=== PATIENT | male | born 1970 | race Caucasian/White ===

== ENCOUNTER 2024-09-23 15:15 | Emergency (ER) | payer MEDICAID, SELFPAY ==
[2024-09-23 15:18] VITALS: BP 132/72; PULSE 86; RESP 18; TEMP 36.4; O2SAT 100; BMI 24.8
--- NOTE | 2024-09-23 15:54 | RAD_ITS ---
EXAM: XR LEFT FOREARM, 2 VIEWS CLINICAL INDICATION: swelling TECHNIQUE: Frontal and lateral views of the left forearm. COMPARISON: No relevant prior studies available. FINDINGS: BONES/JOINTS: No significant abnormality. No acute fracture. No dislocation. SOFT TISSUES: Soft tissue swelling. RAD/Forearm 2 Views IMPRESSION: Soft tissue swelling. No foreign body or acute osseous abnormality is identified. Electronically Signed: Robert Wiseman DO at 16:30 EST ,
[2024-09-23] MEDS: Ketorolac 15 MG/ML Vial IV (16:07)
--- NOTE | 2024-09-23 16:07 | EDS_ITS ---
HPI <ARLENE Pete - Last Filed: 09/23/24 17:21> History of Present Illness Chief Complaint: Bite Narrative Narrative: Patient is a 53-year-old male with history of GERD, tobacco use, COPD presents the emerged apartment worsening pain, swelling to the left forearm. Patient states he thinks he got bit by something, he has 2 areas that are draining to his forearm. Patient states that his left forearm is now red and inflamed, painful and is here for evaluation. Pay states he does have subjective fever and chills at home. He denies any history of diabetes. Here for evaluation. [facility] <ARLENE Pete - Last Filed: 09/23/24 17:21> [facility] Medical History (Updated 09/23/24 @ 17:19 by ARLENE Pete) Arm swelling Home Medications ?Medication ?Instructions ?Recorded ?Last Taken ?Type cephalexin 500 mg capsule 500 mg PO Q6 #40 CAPSULES 09/23/24 Unknown Rx naproxen 500 mg tablet (Naprosyn) 500 mg PO BID PRN pain #20 tabs 09/23/24 Unknown Rx sulfamethoxazole 800 1 tab PO BID #20 tabs 09/23/24 Unknown Rx mg-trimethoprim 160 mg tablet (Bactrim DS) Allergy/AdvReac Type Severity Reaction Status Date / Time morphine Allergy Anaphylaxis Verified 09/23/24 15:18 povidone-iodine AdvReac Intermediate Hives Verified 09/23/24 15:21 Social History Smoking Status: Unknown if ever smoked ROS <ARLENE Pete - Last Filed: 09/23/24 17:21> ROS ED ROS Narrative Constitutional: Negative for fever, chills, weight loss, weakness Eyes: Negative for vision loss, vision change, double vision ENT: Negative for any sore throat, ear pain, congestion Cardiovascular: Negative for any chest pain, tightness, palpitations Respiratory: Negative for any cough, sputum production, hemoptysis, dyspnea, dyspnea on exertion, orthopnea Gastrointestinal: Negative for any abdominal pain, nausea, vomiting, diarrhea, constipation, blood in stool, blood in vomit : Negative for any urinary frequency, dysuria, retention, blood in urine Muscle skeletal: Negative for any neck pain, back pain. Positive for left forearm pain redness and swelling Neurological: Negative for any headache, syncope, dizziness Skin: Negative for any rashes, itching, abrasions, lacerations Psychiatric: Negative for any depression, anxiety, stress, suicidal ideation, homicidal ideation Hematologic: Negative for any excessive bruising, easy bleeding EXAM <ARLENE Pete - Last Filed: 09/23/24 17:21> Physical Exam Narrative Exam Narrative: Vital signs reviewed. HEET: Head normocephalic atraumatic, TMs clear bilaterally. Posterior pharynx is clear, moist mucous membranes. Nares clear bilaterally. Neck: Supple with no lymphadenopathy or tenderness. No signs of meningismus. Cardiac: Regular rate and rhythm no murmurs gallops or rubs, equal peripheral pulses bilaterally. Respiratory: Lungs clear to auscultation bilaterally. No chest tenderness. Abdomen: Soft, nontender, nondistended. No abdominal bruit or pulsatile masses. No hepatosplenomegaly Extremities: Patient is obvious swelling to the lateral aspect of the forearm. Patient does have some soft compartments, patient does have pain on palpation, there is erythema, there is induration. There is 1 open wound. No obvious drainage. +2 radial pulse. Neuro: Cranial nerves II through XII intact, no focal neurological deficits. Skin: Clean dry and intact with no rash, purpura, petechiae, vesicles or pustules. Backs/flank: No CVA tenderness, no midline spinal tenderness, no deformity. Psych: Normal mood and affect. No SI, HI or acute psychosis. Const Vital Signs: 09/23/24 15:18 09/23/24 16:19 09/23/24 17:00 Temperature 97.6 F L 98 F 98 F Temperature Source Oral Oral Oral Pulse Rate 86 77 76 Respiratory Rate 18 16 16 Blood Pressure 132/72 H 0/0 L 148/62 H Blood Pressure Mean 92 90 Pulse Ox 100 98 98 Oxygen Delivery Method Room Air Positive well nourished and well developed General Appearance ED: well developed <Dr. Griffin Uribe DO - Last Filed: 09/23/24 17:26> Physical Exam Const Vital Signs: 09/23/24 15:18 09/23/24 16:19 09/23/24 17:00 Temperature 97.6 F L 98 F 98 F Temperature Source Oral Oral Oral Pulse Rate 86 77 76 Respiratory Rate 18 16 16 Blood Pressure 132/72 H 0/0 L 148/62 H Blood Pressure Mean 92 90 Pulse Ox 100 98 98 Oxygen Delivery Method Room Air [facility] <Gregg MariaARLENE - Last Filed: 09/23/24 17:21> [facility] Lab Data Labs: Laboratory Results - last 24 hr 09/23/24 16:10 WBC 10.2 RBC 5.03 Hgb 14.3 Hct 42.6 MCV 84.7 MCH 28.4 MCHC 33.6 RDW Std Deviation 38.4 RDW Coeff of Lucila 12.5 Plt Count 404 MPV 9.0 Immature Gran % (Auto) 0.300 Neut % (Auto) 68.3 Lymph % (Auto) 17.6 L Greer % (Auto) 11.7 H Eos % (Auto) 1.8 Baso % (Auto) 0.3 Absolute Neuts (auto) 7.0 Absolute Lymphs (auto) 1.80 Nucleated RBC % 0 Sodium 137 Potassium 3.7 Chloride 104 Carbon Dioxide 28.0 Anion Gap 5 BUN 19 H Creatinine 0.80 Estim Creat Clear Calc 105.56 Est GFR (MDRD) Af Amer 130 Est GFR (MDRD) Non-Af 108 BUN/Creatinine Ratio 23.9 H Glucose 100 Lactic Acid 1.0 Calcium 9.0 Total Bilirubin 0.30 AST 13 L ALT 24 Alkaline Phosphatase 95 Total Protein 7.0 Albumin 3.4 Globulin 3.6 Albumin/Globulin Ratio 0.9 Radiography Diagnostic Testing: Clinical Impression(s) from Imaging Studies Forearm X-Ray 09/23/24 15:54 IMPRESSION: Soft tissue swelling. No foreign body or acute osseous abnormality is identified. Electronically Signed: Robert Wiseman DO at 16:30 EST , Treatment and Re-Evaluation :: Differential diagnosis includes however is not limited to: Compartment syndrome, cellulitis, abscess, osteomyelitis, foreign body Patient appears generally well, vital signs are stable, patient is nontoxic- appearing. Presenting to the emerged department with complaints of swelling, pain to the left forearm. Patient dates has been ongoing for a couple weeks. Patient's left forearm is erythematous, indurated. Patient received x-rays, basic laboratory values. Patient received IV Toradol for pain. All radiologic examinations were read, reviewed by the emergency department attending. From these reads, a plan of care will be put in place. Patient reevaluation was improved. Patient's laboratory values showed normal CBC, patient's chemistries were unremarkable. Patient's left forearm showed soft tissue swelling however no foreign body or acute osseous abnormality. At this time, I have low suspicion for any compartment syndrome, sepsis, deep tissue infection. Patient will be placed on Keflex as well as Bactrim for 10 days. Patient will follow-up closely with his PCP in 3 days if he becomes wo rse, fever chills, nausea or vomiting he will return here to the emergency department. He is happy with the plan of care, all questions answered, stable for discharge <Dr. Griffin Uribe, DO - Last Filed: 09/23/24 17:26> [facility] Narrative Medical decision making narrative: I have personally performed a face to face assessment of the patient and have reviewed the ARNOLD Note. I performed a substantive portion of the visit including all aspects of the following. My crowe findings include: History: Patient presents with pain and swelling to his left forearm that has been getting worse over the past 2 weeks. Patient states it has been waxing and waning. Patient states that at times, his forearm IV draining some purulent drainage. Patient admits to some numbness and tingling in his left hand. The patient describes the pain as aching and burning. Patient denies any fevers or chills. Patient states warm heat and has been helping with it. Exam: Vital signs are stable. Patient is afebrile. Patient is in no acute d istress. Musculoskeletal exam reveals tenderness over the left forearm. Forearm compartments are soft. There is induration of the skin. Range of motion of the left forearm was limited in all motions of the left forearm secondary to pain. Radial pulses are equal bilaterally. Strength is 5/5 in the radial, median, and ulnar areas. Sensation was decreased to light touch in the radial, median, and ulnar areas. There is mild tenderness over the left upper arm. There is no bony crepitance or step-off. There is no deformity noted. Medical Decision Making: Differential diagnosis includes cellulitis, abscess, osteomyelitis, electrolyte abnormality, and sepsis. X-rays of the left forearm will be obtained to assess for osteomyelitis. CBC will be obtained to assess for leukocytosis and anemia. Comprehensive metabolic profile will be obtained to assess for hepatic function, renal function, and electrolyte abnormality. Serum lactate will be obtained to assess for sepsis. Patient is given a dose of Toradol here. CBC was reviewed and was within normal limits. Comprehensive metabolic profile was reviewed and was within normal limits. X-rays of the left forearm were obtained. There are 2 views. On my independent interpretation, there is no acute fracture. There is no evidence of osteomyelitis. There is some soft tissue swelling. Radiologist also in terpreted the x-rays and agrees. Patient was advised of his findings. Patient does not have any symptoms of compartment syndrome. Patient was instructed to follow-up with his primary care physician in 3 to 5 days. Patient is given prescription for Keflex and Bactrim. Patient was instructed to take Tylenol or ibuprofen as needed for pain. Patient understood and was agreeable with the plan. All questions were answered. Lab Data Labs: Laboratory Results - last 24 hr 09/23/24 16:10 WBC 10.2 RBC 5.03 Hgb 14.3 Hct 42.6 MCV 84.7 MCH 28.4 MCHC 33.6 RDW Std Deviation 38.4 RDW Coeff of Lucila 12.5 Plt Count 404 MPV 9.0 Immature Gran % (Auto) 0.300 Neut % (Auto) 68.3 Lymph % (Auto) 17.6 L Greer % (Auto) 11.7 H Eos % (Auto) 1.8 Baso % (Auto) 0.3 Absolute Neuts (auto) 7.0 Absolute Lymphs (auto) 1.80 Nucleated RBC % 0 Sodium 137 Potassium 3.7 Chloride 104 Carbon Dioxide 28.0 Anion Gap 5 BUN 19 H Creatinine 0.80 Estim Creat Clear Calc 105.56 Est GFR (MDRD) Af Amer 130 Est GFR (MDRD) Non-Af 108 BUN/Creatinine Ratio 23.9 H Glucose 100 Lactic Acid 1.0 Calcium 9.0 Total Bilirubin 0.30 AST 13 L ALT 24 Alkaline Phosphatase 95 Total Protein 7.0 Albumin 3.4 Globulin 3.6 Albumin/Globulin Ratio 0.9 Radiography Diagnostic Testing: Clinical Impression(s) from Imaging Studies Forearm X-Ray 09/23/24 15:54 IMPRESSION: Soft tissue swelling. No foreign body or acute osseous abnormality is identified. Electronically Signed: Robert Wiseman DO at 16:30 EST , Discharge Plan Triage Chief Complaint: Bite ED Midlevel Provider: Gregg Maria ED Provider: Griffin Uribe Dx/Rx/DC Orders Clinical Impression: Cellulitis Instructions: ED Cellulitis Prescriptions: New cephalexin 500 mg capsule 500 mg PO Q6 Qty: 40 0RF sulfamethoxazole-trimethoprim [Bactrim DS] 800-160 mg tablet 1 tab PO BID Qty: 20 0RF naproxen [Naprosyn] 500 mg tablet 500 mg PO BID PRN (Reason: pain) Qty: 20 0RF Primary Care Provider: Nicholas Bowman Referrals: Nicholas Bowman DO [Primary Care Provider] - Activity Restrictions/Additional Instructions: Take the antibiotics until finished. Print Language: Vietnamese Disposition Disposition: Home, Self Care
[2024-09-23 16:19] VITALS: BP 0/0; PULSE 77; RESP 16; TEMP 36.6; O2SAT 98
[2024-09-23 16:20] LABS: Basophil# 0.03 X10^3/uL; Basophil% 0.3 % (0-1); Eosinophil# 0.18 X10^3/uL; Eosinophils% 1.8 % (0-5); Hematocrit 42.6 % (40-54); Hemoglobin 14.3 g/dL (13.0-16.5); Lymphocyte % 17.6 % (19-41); Mean Corp Hgb Conc 33.6 g/dL (32-36); Mean Corpuscular Hgb 28.4 pg (27.0-32.0); Mean Corpuscular Volume 84.7 fL (80-94); Monocyte# 1.19 X10^3/uL; Monocyte% 11.7 % (0-10); NRBC Flagged by Analyzer 0 % (0-5); Neutrophil # 6.98 X10^3/uL (2.7-7.7); Neutrophil % 68.3 % (47-70); Platelet Count 404 K/mm3 (150-450); RBC Distribution Width CV 12.5 % (11.6-14.6); RBC Distribution Width SD 38.4 fl (35.1-43.9); Red Blood Count 5.03 M/mm3 (4.6-6.2); White Blood Count 10.2 K/mm3 (4.4-11.0)
[2024-09-23 16:37] LABS: ALB/GLOB Ratio 0.9 RATIO (0.9-2.4); AST(SGOT) 13 U/L (15-37); Alanine Aminotransfer ALT/SGPT 24 U/L (16-61); Albumin, Serum 3.4 g/dL (3.2-5.0); Alkaline Phosphatase 95 U/L (45-117); Anion Gap 5 (5-15); BUN 19 mg/dL (7-18); BUN/Creat Ratio 23.9 RATIO (10-20); Chloride 104 mmol/L (98-107); EST Glomerular Filtration Rate 108 mL/min (>60); Est Glom Filt Rate - Afr Amer 130 mL/min (>60); Estimated Creatinine Clearance 105.56 ml/min; Globulin 3.6 g/dL (2.2-4.2); Glucose 100 mg/dL (74-106); Potassium 3.7 mmol/L (3.5-5.1); Sodium Level 137 mmol/L (136-145)
[2024-09-23 17:00] VITALS: BP 148/62; PULSE 76; RESP 16; TEMP 36.6; O2SAT 98
[2024-09-23] MEDS: Cephalexin 250 MG Capsule 500 MG PO (17:25)
[2024-09-23] MEDS: Smz/Tmp Ds Tablet 1 TABLET PO (17:25)
== END 2024-09-23 17:29 | disposition home or self-care (01) ==
PROVIDERS: Nurse Practitioner; Emergency Provider Emergency Medicine; Visit Provider Emergency Medicine
DX: L03.114 Cellulitis of left upper limb (principal); J44.9 Chronic obstructive pulmonary disease, unspecified; K21.9 Gastro-esophageal reflux disease without esophagitis
CPT/HCPCS: 73090; 80053; 83605; 85025; 96374; 99284; A4216

== ENCOUNTER 2024-11-10 13:46 | Emergency (ER) | payer MEDICAID, SELFPAY ==
[2024-11-10 13:48] VITALS: BP 151/89; PULSE 88; RESP 16; TEMP 36.4; O2SAT 100; BMI 24.6
--- NOTE | 2024-11-10 13:52 | ED.VIS.FALL ---
HPI HPI - Fall History of Present Illness Chief Complaint: Fall Informant: patient Occured/Mechanism Occurred: Days (4) Mechanism/Context: Yes same level fall and Yes slip Usually ambulates: Without assistance Pain/Injury Location: Neck, back, head, left shoulder, left hip Worsened by: Heat Relieved by: Ice Associated Symptoms Associated Symptoms: Positive for Parasthesias and Loss of consciousness; Negative for Weakness, Loss of function, Inability to ambulate or Amnesia Length of loss of consciousness: 1 to 2 minutes Narrative Narrative: Patient presents with pain in his neck, back, left hip, and left shoulder that began after a fall 4 days ago. Patient states he slipped and fell and landed on his left side. Patient states he hit his head and had a brief 1 to 2-minute loss of consciousness. Patient admits to some numbness and tingling over his left side. Patient denies any weakness. Patient describes his pain as sharp. Patient states it is worse with heat and better with ice. Patient states he has a history of a prior cervical fusion and is concerned that there could be displacement of the hardware. [facility] Medical History (Updated 11/10/24 @ 15:[address] Griffin Uribe, ) Arm swelling Home Medications ?Medication ?Instructions ?Recorded ?Last Taken ?Type cephalexin 500 mg capsule 500 mg PO Q6 #40 CAPSULES 09/23/24 Unknown Rx sulfamethoxazole 800 1 tab PO BID #20 tabs 09/23/24 Unknown Rx mg-trimethoprim 160 mg tablet (Bactrim DS) naproxen 500 mg tablet (Naprosyn) 500 mg PO BID PRN pain #20 tabs 11/10/24 Unknown Rx Allergy/AdvReac Type Severity Reaction Status Date / Time morphine Allergy Anaphylaxis Verified 11/10/24 13:50 povidone-iodine AdvReac Intermediate Hives Verified 11/10/24 13:50 Surgical History Hx of cervical spinal arthrodesis Social History Smoking Status: Heavy Smoker (>10/day) ROS ROS ED Constitutional Constitutional ED: Reports fever(s); Denies chills Eyes Eyes: Denies blurry vision or change in vision ENT ENT ED: Reports rhinorrhea; Denies sore throat Cardiovascular Cardiovascular: Denies chest pain or palpitations Respiratory/Chest Respiratory/Chest: Reports dyspnea; Denies cough Gastrointestinal Gastrointestinal: Reports nausea; Denies vomiting Genitourinary Genitourinary ED: Denies dysuria or hematuria Musculoskeletal Musculoskeletal: Reports back pain and neck pain Integumentary Denies abscess or rash Neurologic Neurologic: Denies headache(s) or weakness Allergic/Immunologic Allergic/Immunologic ED: Denies mouth swelling or urticaria EXAM Physical Exam Const Vital Signs: 11/10/24 13:48 11/10/24 14:07 Temperature 97.6 F L Temperature Source Temporal Pulse Rate 88 Respiratory Rate 16 Respiratory Effort Normal Non-Labored Respiratory Depth Normal Respiratory Pattern Normal Blood Pressure 151/89 H Blood Pressure Mean 109 Pulse Ox 100 Oxygen Delivery Method Room Air Room Air Positive well nourished and well developed General Appearance ED: well developed and NAD HEENT Reports normocephalic atraumatic Neck full ROM and supple Resp normal respiratory effort and clear to auscultation bilaterally Cardio regular rate and regular rhythm Back/Spine Back/Spine Narrative: There is tenderness over the cervical and lumbar spine and paraspinal muscles. There is no bony crepitance or step-off noted. Range of motion was limited in all motions of the cervical and lumbar spine secondary to pain. Strength is 5/5 bilateral in the upper and lower extremities. There are no sensory deficits noted. Deep tendon reflexes are 2+/4 bilaterally in the upper and lower extremities. Cervical Spine: cervical spine tenderness Cervical Spine Tenderness Details: diffuse Lumbar Spine / Lower Back: lumbar spinal tenderness Neuro oriented x3, CN's II-XII intact bilaterally, moves all extremities, no focal motor deficits and no sensory deficits noted [place] Coma Scale: document GCS findings Spontaneous Obeys Commands Oriented 15 Sensorium / Orientation: alert Motor Exam: strength 5/5 throughout Psych mental status grossly normal and thought process normal MDM MDM MDM Narrative Medical decision making narrative: Differential diagnosis includes cervical fracture, lumbar fracture, shoulder fracture, hip fracture, and contusion. X-rays of the cervical spine will be obtained to assess for fracture and loosening of the hardware. X-rays of the lumbar spine will be obtained to assess for lumbar compression fracture and spondylolisthesis. X-rays of the left shoulder will be obtained to assess for shoulder fracture and dislocation. X-rays of the left hip will be obtained to assess for fracture. Radiography Diagnostic Testing: Clinical Impression(s) from Imaging Studies Cervical Spine X-Ray 11/10/24 14:20 IMPRESSION: No evidence of acute fracture or spondylolisthesis. Electronically Signed: Tania Gallo MD at 14:51 EST , Hip/Pelvis X-Ray 11/10/24 14:20 IMPRESSION: No evidence of displaced pelvic or hip fracture. Electronically Signed: Tania Gallo MD at 14:56 EST , Lumbar Spine X-Ray 11/10/24 14:20 IMPRESSION: Multilevel endplate spondylosis. Electronically Signed: Tania Gallo MD at 14:55 EST , Shoulder X-Ray 11/10/24 14:20 IMPRESSION: Degenerative changes of the acromioclavicular joint. Electronically Signed: Tania Gallo MD at 14:53 EST , X-rays of the left shoulder were obtained. There are 4 views. On my independent interpretation, there is no acute fracture or dislocation noted. There are no degenerative changes noted. Radiologist also interpreted the x-rays and agrees. X-rays of the left hip were obtained. There are 3 views. On my independent interpretation, there is no acute fracture. There is no pelvic fracture noted. There are no degenerative changes noted. Radiologist also interpreted the x-rays and agrees. X-rays of the lumbar spine were obtained. There are 2 views. On my independent interpretation, there is no acute fracture or spondylolisthesis. There are some degenerative changes noted. Radiologist also interpreted the x-rays and agrees. X-rays of the cervical spine were obtained. There are 3 views. On my independent interpretation, there is no acute fracture or spondylolisthesis. Cervical fusion is intact. There is no loosening of the screws or plate. There is no soft tissue swelling. Radiologist also interpreted the x-rays and agrees. Treatment and Re-Evaluation Narrative: Patient was advised of his findings. Patient was given a dose of Naprosyn here. Patient was instructed to use ice to the area. Patient was instructed to follow-up with his primary care physician in 5 to 7 days. Patient was instructed to return if worse in any way. Patient understood and was agreeable with the plan. All questions were answered. Discharge Plan Triage Chief Complaint: Fall ED Provider: Griffin Uribe Dx/Rx/DC Orders Clinical Impression: Acute cervical myofascial strain, Acute lumbosacral myofascial strain, Contusion of left shoulder, Fall, Closed head injury Instructions: ED Back Sprain/Strain, ED Contusion, Upper Extremity, ED Head Injury (Adult), ED Neck Sprain or Strain Prescriptions: Continued naproxen [Naprosyn] 500 mg tablet 500 mg PO BID PRN (Reason: pain) Qty: 20 0RF No Action cephalexin 500 mg capsule 500 mg PO Q6 Qty: 40 0RF sulfamethoxazole-trimethoprim [Bactrim DS] 800-160 mg tablet 1 tab PO BID Qty: 20 0RF Primary Care Provider: Nicholas Bowman Referrals: Nicholas Bowman DO [Primary Care Provider] - 5-7 Days Print Language: Bulgarian Disposition Disposition: Home, Self Care
--- NOTE | 2024-11-10 14:20 | RAD_ITS ---
INDICATION: Injury/Pain EXAMINATION/TECHNIQUE: X-RAY - XR Spine Lumbar 2 or 3 Views COMPARISON: No relevant prior comparison study available FINDINGS: VERTEBRAE: Preserved vertebral body height. No fracture. No spondylolisthesis. There is multilevel endplate spondylosis. Preservation of the normal lumbar lordosis. No significant facet arthropathy. DISCS: Disc spaces are maintained. INCLUDED ABDOMEN: Included bowel gas pattern is non-obstructive. RAD/Lumbar Spine 2 or 3 Views IMPRESSION: Multilevel endplate spondylosis. Electronically Signed: Tania Gallo MD at 14:55 EST ,
--- NOTE | 2024-11-10 14:20 | RAD_ITS ---
INDICATION: Injury/Pain EXAMINATION/TECHNIQUE: X-RAY - XR Spine Cervical 2 or 3 Views COMPARISON: No relevant prior comparison study available FINDINGS: VERTEBRAE: There is evidence of prior anterior fusion of C5-C7 with plate and screw fixation device. Preserved vertebral body height. No fracture. No spondylolisthesis. Preservation of the normal cervical lordosis. No significant facet arthropathy. DISCS: Disc spaces are maintained. NECK SOFT TISSUES: No prevertebral soft tissue widening. LUNG APICES: There are scattered calcified appearing nodules within the visualized left upper lung suggestive of granulomas. RAD/Cerv Spine 2 or 3 Views IMPRESSION: No evidence of acute fracture or spondylolisthesis. Electronically Signed: Tania Gallo MD at 14:51 EST ,
--- NOTE | 2024-11-10 14:20 | RAD_ITS ---
INDICATION: Injury/Pain EXAMINATION/TECHNIQUE: X-RAY - XR Hip Unilateral with Pelvis when performed; 2-3 Views COMPARISON: No relevant prior comparison study available FINDINGS: PELVIC BONES: No displaced fracture, destructive or sclerotic lesions. Note that overlapping bowel shadows may however obscure fine detail. Sacroiliac joints are unremarkable. No widening of the pubic symphysis. HIPS: The articular structures are unremarkable. No displaced fracture seen in this frontal view. SOFT TISSUES: No soft tissue swelling or gas. RAD/HIP, UNI W/ Pelvis 2-3 Views IMPRESSION: No evidence of displaced pelvic or hip fracture. Electronically Signed: Tania Gallo MD at 14:56 EST ,
--- NOTE | 2024-11-10 14:20 | RAD_ITS ---
INDICATION: Injury/Pain EXAMINATION/TECHNIQUE: X-RAY - LEFT XR Shoulder Min 2 Views 4 VIEWS COMPARISON: No relevant prior comparison study available FINDINGS: SOFT TISSUES: No soft tissue swelling or gas. No radiopaque foreign body. There appear to be granulomas within the left upper lung. BONES/JOINTS: No acute fracture or subluxation.. Normal alignment. There are degenerative changes of the acromioclavicular joint.. No sclerotic or destructive changes observed. RAD/Shoulder min 2 Views IMPRESSION: Degenerative changes of the acromioclavicular joint. Electronically Signed: Tania Gallo MD at 14:53 EST ,
[2024-11-10] MEDS: Naproxen 500 MG Tablet PO (15:12)
== END 2024-11-10 15:18 | disposition home or self-care (01) ==
PROVIDERS: Emergency Provider Emergency Medicine; Visit Provider Emergency Medicine
DX: S09.90XA Unspecified injury of head, initial encounter (principal); S16.1XXA Strain of muscle, fascia and tendon at neck level, initial encounter; S39.012A Strain of muscle, fascia and tendon of lower back, initial encounter; S40.012A Contusion of left shoulder, initial encounter; W01.0XXA Fall on same level from slipping, tripping and stumbling without subsequent striking against object, initial encounter; F17.200 Nicotine dependence, unspecified, uncomplicated; R06.00 Dyspnea, unspecified
CPT/HCPCS: 72040; 72100; 73030; 73502; 99282

== ENCOUNTER 2025-07-04 13:49 | Emergency (ER) | payer MEDICAID, SELFPAY ==
[2025-07-04 13:52] VITALS: BP 143/85; PULSE 65; RESP 18; TEMP 36.8; O2SAT 100; BMI 26.8
--- NOTE | 2025-07-04 14:10 | EKG12_ITS ---
Test Reason : DIZZY/SOB Blood Pressure : */* mmHG Vent. Rate : 62 BPM Atrial Rate : 62 BPM P-R Int : 158 ms QRS Dur : 96 ms QT Int : 408 ms P-R-T Axes : 61 54 71 degrees QTcB Int : 414 ms Normal sinus rhythm Nonspecific T wave abnormality Abnormal ECG Confirmed by WALDEMAR JIN, JT ([id number]), general expeditor MICHAEL PARDO ([id number]) on 07/05/2025 10:44:24 AM Referred By: HELEN/MCKAY Confirmed By: JT MEDEIRSO MD
== END 2025-07-04 15:53 | disposition left against medical advice (07) ==
LOC: ED 15:54
DX: R06.02 Shortness of breath (principal)
CPT/HCPCS: 93005